=== PATIENT | female | born 1995 | race Caucasian/White ===

== ENCOUNTER 2021-06-08 19:57 | Emergency (ER) | payer OTHER ==
[~2021-06-08] VITALS: Ht 154.9 cm; Wt 65.8 kg
[2021-06-08] MEDS ORDERED: BUSPIRONE HCL10 MG PO (20:06)
[2021-06-08] MEDS ORDERED: ABILIFY10 MG PO (20:06)
[2021-06-08 21:12] VITALS: BP 127/87
== END 2021-06-08 21:15 | disposition home or self-care (01) ==
LOC: ER 19:57
DX: U07.1 COVID-19 (principal); B34.9 Viral infection, unspecified; F32.9 Major depressive disorder, single episode, unspecified; F41.9 Anxiety disorder, unspecified; Z79.899 Other long term (current) drug therapy

== ENCOUNTER 2021-06-22 10:31 | Emergency (ER) | payer OTHER ==
[~2021-06-22] VITALS: Ht 154.9 cm; Wt 65.8 kg
[2021-06-22 10:31] VITALS: BP 141/95
[~2021-06-22 10:31] MED LIST: ABILIFY10 MG PO; BUSPIRONE HCL10 MG PO
== END 2021-06-22 11:13 | disposition home or self-care (01) ==
LOC: ER 10:31
DX: Z20.822 Contact with and (suspected) exposure to COVID-19 (principal); F32.9 Major depressive disorder, single episode, unspecified; F41.9 Anxiety disorder, unspecified; Z79.899 Other long term (current) drug therapy

== ENCOUNTER 2022-01-03 19:07 | Emergency (ER) | payer OTHER ==
[~2022-01-03] VITALS: Ht 154.9 cm; Wt 62.6 kg
[2022-01-03] MEDS ORDERED: AMOX TR-K CLV1 EAC4 PO (19:29)
[2022-01-03 19:32] VITALS: BP 142/89
== END 2022-01-03 19:45 | disposition home or self-care (01) ==
LOC: ER 19:07
DX: H66.90 Otitis media, unspecified, unspecified ear (principal); H66.91 Otitis media, unspecified, right ear